=== PATIENT | male | born 1980 | race Caucasian/White ===

== ENCOUNTER 2020-02-09 09:53 | Emergency (ER) | payer OTHER ==
[~2020-02-09] VITALS: Ht 175.3 cm; Wt 99.8 kg
[2020-02-09] MEDS ORDERED: Norco 5-325 Ta1 EACH PO (10:21)
[2020-02-09] MEDS ORDERED: Keflex500 MG PO (10:21)
== END 2020-02-09 10:38 | disposition home or self-care (01) ==
LOC: ER 09:53
DX: T22.111A Burn of first degree of right forearm, initial encounter (principal); T22.10XA Burn of first degree of shoulder and upper limb, except wrist and hand, unspecified site, initial encounter; T31.0 Burns involving less than 10% of body surface; F17.200 Nicotine dependence, unspecified, uncomplicated; X08.8XXA Exposure to other specified smoke, fire and flames, initial encounter
CPT/HCPCS: 90471; 90714; 99283-25; A9270-GY